=== PATIENT | female | born 1965 | race Caucasian/White ===

== ENCOUNTER 2017-04-07 15:25 | Emergency (ER) | payer BC, OTHER ==
[~2017-04-07] VITALS: Ht 172.7 cm; Wt 90.7 kg
--- NOTE | ~2017-04-07 | EKG ---
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
[~2017-04-07 15:25] MED LIST: B-12500 MCG PO; CIPROFLOXACIN500 M3; HYDROCODON-ACE1 EAC5 PO; IBUPROFEN 200200 M1; IBUPROFEN 200200 M1 PO; NORCO 5-325 TA1 EACH PO; PERCOCET 10-321 EACH; TRAMADOL 50 MG50 MG PO; VITAMIN D400 UNI1; WELLBUTRIN 100100 MG PO; XARELTO10 M1
[2017-04-07 16:24] LABS: ABSOLUTE NEUTROPHILS 4.8 thou/uL (1.4-8.2); BASOPHILS 0.8 % (0.0-2.0); EOSINOPHILS 0.5 % (0.0-3.0); HEMATOCRIT 39.6 % (37.0-47.0); HEMOGLOBIN 13.5 gm/dL (12.0-15.0); LYMPHOCYTES 41.2 % (24.0-44.0); MCH 34.3 pg (26.0-34.0); MCHC 34.1 g/dL (28.0-37.0); MCV 100.7 fL (80.0-100.0); MONOCYTES 5.5 % (1.0-8.0); PLATELET COUNT 258 thou/uL (150-400); RBC 3.93 mil/uL (4.20-5.00); RDW 14.3 % (10.5-14.5); WBC 9.3 thou/uL (4.0-11.0)
[2017-04-07 16:27] LABS: MANUAL DIFF NO
[2017-04-07 16:32] LABS: ANION GAP 17 mmol/L (7-16); BUN 6 mg/dL (7-18); CALCIUM 9.3 mg/dL (8.5-10.1); CHLORIDE 90 mmol/L (98-107); CO2 21 mmol/L (21-32); CREATININE 0.6 mg/dL (0.6-1.0); GLUCOSE 92 mg/dL (74-106); POTASSIUM 4.7 mmol/L (3.5-5.1); SODIUM 128 mmol/L (136-145)
[2017-04-07 16:41] LABS: ALBUMIN 4.1 g/dL (3.4-5.0); ALKALINE PHOSPHATASE 106 U/L (46-116); SGOT 49 U/L (15-37); SGPT 30 U/L (30-65); TOTAL BILIRUBIN 0.7 mg/dL (<0.1-1.0); TOTAL PROTEIN 8.6 g/dL (6.4-8.2); TROPONIN-I < 0.04 ng/mL (<0.04-0.07)
[2017-04-07] MEDS ORDERED: ATIVAN1 MG PO (17:49)
== END 2017-04-07 18:12 | disposition home or self-care (01) ==
LOC: ER 15:25
PROVIDERS: Physician Assistant
DX: F41.9 Anxiety disorder, unspecified (principal); E86.0 Dehydration; E87.8 Other disorders of electrolyte and fluid balance, not elsewhere classified; E87.1 Hypo-osmolality and hyponatremia; F10.10 Alcohol abuse, uncomplicated; I10 Essential (primary) hypertension; F32.9 Major depressive disorder, single episode, unspecified; Z96.641 Presence of right artificial hip joint; Z87.891 Personal history of nicotine dependence

== ENCOUNTER → 2017-07-15 | Outpatient (CLI) | payer BC, OTHER ==
[~2017-07-15] MED LIST changes: +ATIVAN1 MG PO
== END ==
LOC: ULTRA 09:14
DX: M79.605 Pain in left leg (principal); M79.89 Other specified soft tissue disorders